=== PATIENT | male | born 1960 | race Caucasian/White ===

== ENCOUNTER → 2017-02-02 | Outpatient (CLI) | payer MEDICARE, OTHER ==
[~2017-02-02] MED LIST: ASPI81TA3 PO; ATOR20TA38 PO; BENA10TA48 PO; HYD25 PO
--- NOTE | 2017-02-02 17:23 | RADRPT ---
PROCEDURE: Right knee radiographs. CLINICAL INDICATION: Right knee pain. TECHNIQUE: Four views. Weight bearing. Frontal, lateral, oblique, and patellar view. COMPARISON: No prior studies are available for comparison. FINDINGS: There is no fracture or dislocation. The soft tissues are normal. There are degenerative changes with small osteophytes arising from all 3 joint compartment margins. There is no joint space narrowing or deformity. There is no lytic or blastic lesion. There is no radiopaque foreign body. IMPRESSION: 1. Mild degenerative changes of the right knee. 2. No acute abnormality. RPTAT: QQ .Gutierrez Pardo MD, Date Time Electronically viewed and signed by .Gutierrez Pardo MD, on 02/02/2017 17:22 .R/
== END | disposition home or self-care (01) ==
LOC: HKI 14:54
PROVIDERS: ATTEND Orthopaedic Surgery
DX: M25.561 Pain in right knee (principal); M17.11 Unilateral primary osteoarthritis, right knee; E66.01 Morbid (severe) obesity due to excess calories

== ENCOUNTER 2018-04-01 12:45 | Inpatient (IN) | END 2018-04-11 16:10 | disposition EXP | DRG 871 ==